=== PATIENT | male | born 1975 | race Two or more races ===

== ENCOUNTER 2022-04-29 13:33 | Inpatient (IN) | payer OTHER ==
[~2022-04-29] VITALS: Ht 170.2 cm; Wt 93.7 kg
[2022-04-29] MEDS ORDERED: ONDANSETRON HCL 4 MG/2 ML VIAL IV ONE ×2 (14:00→21:15)
[2022-04-29] MEDS ORDERED: SODIUM CHLORIDE 0.9% 1,000 ML IVB ONE (14:00)
[2022-04-29] MEDS ORDERED: MORPHINE SULFATE 4 MG/ML SYR/VIAL IV ONE ×2 (14:00→21:15)
[2022-04-29 16:32] LABS: Basophils # (auto) 0.1 10 ^3/uL (0-0.2); Eosinophils # (auto) 0.2 10 ^3/uL (0-0.8); Hematocrit 45.4 % (41.0-53.0); Hemoglobin 15.2 g/dL (13.5-17.5); Lymphocytes # (auto) 2.6 10 ^3/uL (0.4-5.4); Lymphocytes % (auto) 35.9 % (10.0-50.0); Mean Corpuscular Hgb Conc. 33.4 g/dL (32.0-36.0); Mean Corpuscular Volume 89.8 fL (80.0-100.0); Monocytes # (auto) 0.4 10 ^3/uL (0-1.3); Monocytes % (auto) 5.7 % (0.0-12.0); Neutrophils % (auto) 54.4 % (37.0-80.0); Nucleated Red Blood Cells % 0.1 %; Red Blood Cells 5.06 10^6/uL (4.5-5.90); Red Cell Distribution Width 12.9 % (11.8-14.3); White Blood Cell 7.3 10^3/uL (4.4-10.8)
[2022-04-29 16:54] LABS: Albumin 4.1 g/dL (3.4-5.0); Calcium 8.7 mg/dL (8.5-10.1); Potassium 3.9 mmol/L (3.5-5.1)
[2022-04-29 16:58] LABS: BUN/Creatinine Ratio 11.3; Bilirubin, Total 0.7 mg/dL (0.2-1.0); Total Protein 7.9 g/dL (6.4-8.2)
[2022-04-29 17:24] LABS: INR 1.01 (0.9-1.15); Partial Thromboplastin Time 31.3 sec (24.6-33.4)
[2022-04-29 21:43] LABS: Urine Bacteria NONE SEEN /hpf (None Seen); Urine Blood TRACE /uL (Negative); Urine Mucus FEW (None Seen); Urine Specific Gravity 1.013 (1.001-1.035); Urine WBC 1 /hpf (0 - 3)
[2022-04-29] MEDS ORDERED: MORPHINE SULFATE INJ 2 MG/ml SYRG IV PRN (21:45)
[2022-04-29] MEDS ORDERED: NITROGLYCERIN 0.4 MG SL TAB SL PRN (21:45)
[2022-04-29] MEDS ORDERED: PANTOPRAZOLE 40 MG/10 ML VIAL INJ IV ONE (21:45)
[2022-04-29] MEDS: D5W/SOD CHL 0.45% 1,000 ML IV SCH (21:57)
[2022-04-30 04:54] LABS: Basophils # (auto) 0 10 ^3/uL (0-0.2); Basophils % (auto) 0.7 % (0.0-2.0); Eosinophils # (auto) 0.1 10 ^3/uL (0-0.8); Eosinophils % (auto) 1.7 % (0.0-7.0); Hematocrit 38.5 % (41.0-53.0); Hemoglobin 13.4 g/dL (13.5-17.5); Lymphocytes # (auto) 2.3 10 ^3/uL (0.4-5.4); Lymphocytes % (auto) 38.3 % (10.0-50.0); Mean Corpuscular Hemoglobin 31.1 pg (28.0-32.0); Mean Corpuscular Hgb Conc. 34.7 g/dL (32.0-36.0); Mean Corpuscular Volume 89.8 fL (80.0-100.0); Monocytes # (auto) 0.5 10 ^3/uL (0-1.3); Monocytes % (auto) 8.5 % (0.0-12.0); Neutrophils % (auto) 50.8 % (37.0-80.0); Red Blood Cells 4.29 10^6/uL (4.5-5.90); Red Cell Distribution Width 12.9 % (11.8-14.3); White Blood Cell 5.9 10^3/uL (4.4-10.8)
[2022-04-30 05:16] LABS: Albumin 3.5 g/dL (3.4-5.0); Calcium 8.2 mg/dL (8.5-10.1); Potassium 4.3 mmol/L (3.5-5.1)
[2022-04-30 05:21] LABS: BUN/Creatinine Ratio 12.3; Bilirubin, Total 2.1 mg/dL (0.2-1.0); Total Protein 6.3 g/dL (6.4-8.2)
[2022-04-30] MEDS: ONDANSETRON HCL 4 MG/2 ML VIAL IV PRN ×2 (05:59→20:53)
[2022-04-30] MEDS: MORPHINE SULFATE 4 MG/ML SYR/VIAL IV PRN ×2 (05:59→20:52)
[2022-04-30 09:52] LABS: Amylase 111 U/L (25-115); Lipase 821 U/L (73-393)
[2022-04-30] MEDS: PANTOPRAZOLE 40 MG/10 ML VIAL INJ IV SCH (10:16)
[2022-04-30] MEDS ORDERED: EZ PAQUE SUSP 12OZ BTL ONE (10:16)
[2022-04-30] MEDS: ENOXAPARIN SOD 40 MG/0.4 ML SYRINGE SC SCH (10:16)
[2022-04-30] MEDS ORDERED: BARIUM SULFATE 98% 340 GM PWDR ONE (10:16)
[2022-04-30] MEDS ORDERED: GASTROGRAFIN 120 ML SOL ONE (10:17)
[2022-04-30] MEDS ORDERED: EZ-GAS II GRANULES (RADIOLOGY USE) PO ONE (10:18)
[2022-04-30 14:46] VITALS: BP 107/68
[2022-04-30] MEDS: D5W/SOD CHL 0.45% 1,000 ML IV SCH ×2 (17:42→23:01)
[2022-04-30 22:00] VITALS: BP 109/72
[2022-05-01 04:52] VITALS: BP 100/61
[2022-05-01] MEDS: D5W/SOD CHL 0.45% 1,000 ML IV SCH ×3 (05:48→21:21)
[2022-05-01 08:30] VITALS: BP 102/54
[2022-05-01] MEDS: PANTOPRAZOLE 40 MG/10 ML VIAL INJ IV SCH (10:35)
[2022-05-01] MEDS: ENOXAPARIN SOD 40 MG/0.4 ML SYRINGE SC SCH (10:35)
[2022-05-01 12:30] VITALS: BP 120/78
[2022-05-01 16:16] VITALS: BP 112/75
[2022-05-01] MEDS: HYDROcodone-ACET 10/325MG TAB PO PRN ×2 (16:50→21:21)
[2022-05-01] MEDS: DOCUSATE SOD 100 MG CAP PO SCH (21:21)
[2022-05-01 22:00] VITALS: BP 112/68
[2022-05-02] MEDS: D5W/SOD CHL 0.45% 1,000 ML IV SCH ×2 (03:05→09:45)
[2022-05-02 05:00] VITALS: BP 106/58
[2022-05-02 05:52] LABS: Albumin 3.4 g/dL (3.4-5.0); Calcium 8.7 mg/dL (8.5-10.1); Potassium 4.1 mmol/L (3.5-5.1)
[2022-05-02 05:57] LABS: BUN/Creatinine Ratio 5.6; Bilirubin, Total 1.6 mg/dL (0.2-1.0); Total Protein 6.4 g/dL (6.4-8.2)
[2022-05-02 09:00] VITALS: BP 109/70
[2022-05-02] MEDS: DOCUSATE SOD 100 MG CAP PO SCH ×2 (09:31→22:06)
[2022-05-02] MEDS: HYDROcodone-ACET 10/325MG TAB PO PRN ×3 (09:31→22:06)
[2022-05-02] MEDS: ENOXAPARIN SOD 40 MG/0.4 ML SYRINGE SC SCH (09:31)
[2022-05-02] MEDS: PANTOPRAZOLE 40 MG/10 ML VIAL INJ IV SCH (09:31)
[2022-05-02 13:00] VITALS: BP 104/61
[2022-05-02 13:26] LABS: Hepatitis A Ab IgM Negative; Hepatitis B Core IgM Negative; Hepatitis C Antibody Negative (Negative)
[2022-05-02] MEDS ORDERED: OMNIPAQUE ORAL SOLN 500ml 12mg/ml PO ONE (13:29)
[2022-05-02] MEDS ORDERED: IOHEXOL 300 MG/ML 100ML BOTTLE IJ ONE (14:59)
[2022-05-02 17:00] VITALS: BP 112/68
[2022-05-02 21:30] VITALS: BP 103/71
[2022-05-02 22:33] LABS: Urine Bacteria NONE SEEN /hpf (None Seen); Urine Blood Negative /uL (Negative); Urine Specific Gravity 1.012 (1.001-1.035); Urine WBC 1 /hpf (0 - 3)
[2022-05-03 03:44] LABS: Albumin 3.6 g/dL (3.4-5.0); Calcium 8.6 mg/dL (8.5-10.1); Potassium 4.5 mmol/L (3.5-5.1)
[2022-05-03 03:47] LABS: BUN/Creatinine Ratio 4.6; Bilirubin, Total 1.8 mg/dL (0.2-1.0); Total Protein 6.7 g/dL (6.4-8.2)
[2022-05-03 05:00] VITALS: BP 98/56
[2022-05-03 09:03] VITALS: BP 107/59
[2022-05-03] MEDS: ENOXAPARIN SOD 40 MG/0.4 ML SYRINGE SC SCH (09:55)
[2022-05-03] MEDS: DOCUSATE SOD 100 MG CAP PO SCH ×2 (09:55→21:45)
[2022-05-03] MEDS: PANTOPRAZOLE 40 MG/10 ML VIAL INJ IV SCH (09:57)
[2022-05-03 13:00] VITALS: BP 106/64
[2022-05-03] MEDS: HYDROcodone-ACET 10/325MG TAB PO PRN ×2 (15:18→19:44)
[2022-05-03 16:59] VITALS: BP 109/64
[2022-05-03 22:00] VITALS: BP 112/73
[2022-05-04] MEDS: ONDANSETRON HCL 4 MG/2 ML VIAL IV PRN (00:21)
[2022-05-04 05:00] VITALS: BP 105/71
[2022-05-04 06:57] LABS: Albumin 3.8 g/dL (3.4-5.0); Calcium 8.7 mg/dL (8.5-10.1); Potassium 4.1 mmol/L (3.5-5.1)
[2022-05-04 07:00] LABS: BUN/Creatinine Ratio 6.6; Bilirubin, Total 1.6 mg/dL (0.2-1.0); Total Protein 6.8 g/dL (6.4-8.2)
[2022-05-04 09:00] VITALS: BP 109/70
[2022-05-04] MEDS: PANTOPRAZOLE 40 MG/10 ML VIAL INJ IV SCH (10:00)
[2022-05-04] MEDS: DOCUSATE SOD 100 MG CAP PO SCH ×2 (11:58→22:45)
[2022-05-04] MEDS: ENOXAPARIN SOD 40 MG/0.4 ML SYRINGE SC SCH (11:59)
[2022-05-04 13:00] VITALS: BP 112/71
[2022-05-04 13:41] LABS: Cholesterol 176 mg/dL (< 200); HDL Cholesterol 65 mg/dL (40-59); LDL Cholesterol 104 mg/dL (< 100); Triglycerides 111 mg/dL (< 150)
[2022-05-04 17:00] VITALS: BP 112/68
[2022-05-04] MEDS: HYDROcodone-ACET 10/325MG TAB PO PRN (20:12)
[2022-05-05 05:12] VITALS: BP 96/59
[2022-05-05 06:00] LABS: Albumin 3.5 g/dL (3.4-5.0); BUN/Creatinine Ratio 18.8; Bilirubin, Total 0.7 mg/dL (0.2-1.0); Calcium 8.7 mg/dL (8.5-10.1); Total Protein 6.6 g/dL (6.4-8.2)
[2022-05-05 08:00] VITALS: BP 110/71
[2022-05-05] MEDS: DOCUSATE SOD 100 MG CAP PO SCH ×2 (08:49→21:14)
[2022-05-05] MEDS: ENOXAPARIN SOD 40 MG/0.4 ML SYRINGE SC SCH (08:49)
[2022-05-05] MEDS: PANTOPRAZOLE 40 MG/10 ML VIAL INJ IV SCH (08:49)
[2022-05-05 09:00] VITALS: BP 110/71
[2022-05-05 13:00] VITALS: BP 105/69
[2022-05-05 17:00] VITALS: BP 100/62
[2022-05-05] MEDS: ACETAMINOPHEN 325 MG TAB PO PRN (21:14)
[2022-05-05 22:32] VITALS: BP 104/68
[2022-05-06 05:32] VITALS: BP 90/52
[2022-05-06 06:07] LABS: Albumin 3.6 g/dL (3.4-5.0); Calcium 8.5 mg/dL (8.5-10.1); Potassium 4.3 mmol/L (3.5-5.1)
[2022-05-06 06:14] LABS: BUN/Creatinine Ratio 15.7; Bilirubin, Total 0.6 mg/dL (0.2-1.0); Total Protein 6.8 g/dL (6.4-8.2)
[2022-05-06 07:34] VITALS: BP 110/67
[2022-05-06] MEDS: DOCUSATE SOD 100 MG CAP PO SCH ×2 (11:15→21:47)
[2022-05-06] MEDS: PANTOPRAZOLE 40 MG/10 ML VIAL INJ IV SCH (11:15)
[2022-05-06] MEDS: ENOXAPARIN SOD 40 MG/0.4 ML SYRINGE SC SCH (11:15)
[2022-05-06] MEDS: HYDROcodone-ACET 10/325MG TAB PO PRN (11:32)
[2022-05-06 12:41] VITALS: BP 117/72
[2022-05-06 16:44] VITALS: BP 102/69
[2022-05-06 22:00] VITALS: BP 99/68
[2022-05-06] MEDS: ACETAMINOPHEN 325 MG TAB PO PRN (23:49)
[2022-05-07 05:00] VITALS: BP 107/72
[2022-05-07 07:32] LABS: Albumin 3.7 g/dL (3.4-5.0); Calcium 8.5 mg/dL (8.5-10.1); Potassium 4.1 mmol/L (3.5-5.1)
[2022-05-07 07:36] LABS: BUN/Creatinine Ratio 13.7; Bilirubin, Total 0.7 mg/dL (0.2-1.0); Total Protein 6.9 g/dL (6.4-8.2)
[2022-05-07 09:00] VITALS: BP 98/60
[2022-05-07] MEDS: PANTOPRAZOLE 40 MG/10 ML VIAL INJ IV SCH (10:00)
[2022-05-07] MEDS: DOCUSATE SOD 100 MG CAP PO SCH ×2 (10:00→22:04)
[2022-05-07] MEDS: ENOXAPARIN SOD 40 MG/0.4 ML SYRINGE SC SCH (10:00)
[2022-05-07 12:56] VITALS: BP 96/55
[2022-05-07] MEDS: HYDROcodone-ACET 10/325MG TAB PO PRN ×2 (13:55→22:08)
[2022-05-07 22:00] VITALS: BP 104/66
[2022-05-08 05:00] VITALS: BP 95/63
[2022-05-08 06:10] LABS: Potassium 4.3 mmol/L (3.5-5.1)
[2022-05-08 06:26] LABS: Albumin 3.5 g/dL (3.4-5.0); BUN/Creatinine Ratio 19.1; Bilirubin, Total 0.4 mg/dL (0.2-1.0); Calcium 8.5 mg/dL (8.5-10.1); Total Protein 6.4 g/dL (6.4-8.2)
[2022-05-08 09:00] VITALS: BP 103/64
[2022-05-08] MEDS: DOCUSATE SOD 100 MG CAP PO SCH (10:18)
[2022-05-08] MEDS: HYDROcodone-ACET 10/325MG TAB PO PRN (10:18)
[2022-05-08] MEDS: ENOXAPARIN SOD 40 MG/0.4 ML SYRINGE SC SCH (10:19)
[2022-05-08] MEDS: PANTOPRAZOLE 40 MG/10 ML VIAL INJ IV SCH (10:19)
[2022-05-08] MEDS ORDERED: PANT40TA2 PO (12:34)
[2022-05-08 13:00] VITALS: BP 98/63
[2022-05-08 15:58] VITALS: BP 98/63
[2022-05-08 17:00] VITALS: BP 101/65
== END 2022-05-08 17:35 | DRG 391 ==
LOC: EDBD 13:33 → EEVIPCON 13:33 → ER 13:33 → OVERFLOW 21:41 → CENTRAL 04-30 13:31
PROVIDERS: ADMIT Internal Medicine; ATTEND Internal Medicine
DX: K29.70 Gastritis, unspecified, without bleeding (principal); K85.90 Acute pancreatitis without necrosis or infection, unspecified; N13.8 Other obstructive and reflux uropathy; N32.0 Bladder-neck obstruction; N40.1 Benign prostatic hyperplasia with lower urinary tract symptoms; K59.00 Constipation, unspecified; K75.9 Inflammatory liver disease, unspecified; N28.1 Cyst of kidney, acquired; R33.8 Other retention of urine; F17.200 Nicotine dependence, unspecified, uncomplicated; Z20.822 Contact with and (suspected) exposure to COVID-19; Z90.49 Acquired absence of other specified parts of digestive tract; Z86.14 Personal history of Methicillin resistant Staphylococcus aureus infection; Z79.899 Other long term (current) drug therapy; Z80.0 Family history of malignant neoplasm of digestive organs
CPT/HCPCS: 36415; 70450; 74018; 74176; 74177; 74181; 74248; 76705; 80053; 80061; 80074; 81001; 82150; 83690; 84154; 85025; 85610; 85730; 86850; 86900; 86901; 87081; 87086; 96361; 96374; 96375; C9113; G0378; J2405

== ENCOUNTER 2022-05-10 01:02 | Inpatient (IN) | payer OTHER ==
[~2022-05-10] VITALS: Ht 172.7 cm; Wt 90.1 kg
[~2022-05-10 01:02] MED LIST: PANT40TA2 PO
[2022-05-10 02:50] LABS: Basophils # (auto) 0.1 10 ^3/uL (0-0.2); Eosinophils # (auto) 0.3 10 ^3/uL (0-0.8); Eosinophils % (auto) 3.2 % (0.0-7.0); Hemoglobin 15.2 g/dL (13.5-17.5); Lymphocytes # (auto) 2.6 10 ^3/uL (0.4-5.4); Lymphocytes % (auto) 30.2 % (10.0-50.0); Mean Corpuscular Hemoglobin 31.6 pg (28.0-32.0); Mean Corpuscular Hgb Conc. 35.4 g/dL (32.0-36.0); Mean Corpuscular Volume 89.2 fL (80.0-100.0); Monocytes # (auto) 0.5 10 ^3/uL (0-1.3); Monocytes % (auto) 6.2 % (0.0-12.0); Neutrophils # (auto) 5.1 10 ^3/uL (1.6-8.6); Neutrophils % (auto) 59.4 % (37.0-80.0); Red Blood Cells 4.82 10^6/uL (4.5-5.90); White Blood Cell 8.6 10^3/uL (4.4-10.8)
[2022-05-10 03:05] LABS: Calcium 8.7 mg/dL (8.5-10.1); Potassium 3.6 mmol/L (3.5-5.1)
[2022-05-10 03:09] LABS: BUN/Creatinine Ratio 19.1; Bilirubin, Total 0.4 mg/dL (0.2-1.0); Total Protein 7.9 g/dL (6.4-8.2)
[2022-05-10] MEDS ORDERED: LIDOCAINE VISCOUS 2% 15ML UD PO ONE (07:00)
[2022-05-10] MEDS ORDERED: ONDANSETRON HCL 4 MG/2 ML VIAL IV ONE (07:00)
[2022-05-10] MEDS ORDERED: KETOROLAC TROMETH 30 MG/ML 1ML VIAL IV ONE (07:00)
[2022-05-10] MEDS ORDERED: HYDROcodone-ACET 5/325MG TAB PO ONE (07:00)
[2022-05-10] MEDS ORDERED: FAMOTIDINE (10MG/ML) 2ML VL IV ONE (07:00)
[2022-05-10] MEDS ORDERED: ALUM & MAG HYDROX-SIMETH LIQ(MAALOX) 30 ML PO ONE (07:00)
[2022-05-10] MEDS ORDERED: IOHEXOL 300 MG/ML 100ML BOTTLE IJ ONE (07:04)
[2022-05-10] MEDS ORDERED: SODIUM CHLORIDE 0.9% 1,000 ML IV ONE (10:45)
[2022-05-10] MEDS ORDERED: MORPHINE SULFATE INJ 2 MG/ml SYRG IV ONE (10:45)
[2022-05-10] MEDS ORDERED: METOCLOPRAMIDE HCL 5MG/ml INJ 2ml VIAL IV ONE (10:45)
[2022-05-10] MEDS ORDERED: ONDANSETRON HCL 4 MG/2 ML VIAL IV PRN (17:00)
[2022-05-10 22:00] VITALS: BP 115/80
[2022-05-10] MEDS: PANTOPRAZOLE 40 MG/10 ML VIAL INJ IV SCH (22:00)
[2022-05-10] MEDS: SUCRALFATE 1 GM/10 ML ORAL SUSP PO SCH (22:00)
[2022-05-11 03:28] LABS: Basophils # (auto) 0.1 10 ^3/uL (0-0.2); Basophils % (auto) 1.2 % (0.0-2.0); Eosinophils # (auto) 0.3 10 ^3/uL (0-0.8); Eosinophils % (auto) 4.3 % (0.0-7.0); Hematocrit 40.7 % (41.0-53.0); Lymphocytes # (auto) 2.2 10 ^3/uL (0.4-5.4); Lymphocytes % (auto) 34.9 % (10.0-50.0); Mean Corpuscular Hemoglobin 30.9 pg (28.0-32.0); Mean Corpuscular Hgb Conc. 34.5 g/dL (32.0-36.0); Mean Corpuscular Volume 89.5 fL (80.0-100.0); Monocytes # (auto) 0.4 10 ^3/uL (0-1.3); Neutrophils # (auto) 3.2 10 ^3/uL (1.6-8.6); Neutrophils % (auto) 52.6 % (37.0-80.0); Nucleated Red Blood Cells % 0.1 %; Red Blood Cells 4.55 10^6/uL (4.5-5.90); Red Cell Distribution Width 12.4 % (11.8-14.3); White Blood Cell 6.2 10^3/uL (4.4-10.8)
[2022-05-11 03:41] LABS: Albumin 3.8 g/dL (3.4-5.0); Calcium 8.7 mg/dL (8.5-10.1); Potassium 4.4 mmol/L (3.5-5.1)
[2022-05-11 03:45] LABS: BUN/Creatinine Ratio 17.7; Bilirubin, Total 0.7 mg/dL (0.2-1.0); Total Protein 6.8 g/dL (6.4-8.2)
[2022-05-11 05:00] VITALS: BP 98/63
[2022-05-11] MEDS: SUCRALFATE 1 GM/10 ML ORAL SUSP PO SCH ×3 (06:00→21:36)
[2022-05-11 09:19] VITALS: BP 100/64
[2022-05-11] MEDS: PANTOPRAZOLE 40 MG/10 ML VIAL INJ IV SCH ×2 (11:28→21:35)
[2022-05-11] MEDS: MORPHINE SULFATE 4 MG/ML SYR/VIAL IV PRN (11:29)
[2022-05-11] MEDS: ENOXAPARIN SOD 40 MG/0.4 ML SYRINGE SC SCH (11:29)
[2022-05-11] MEDS: D5W/SOD CHL 0.45%/KCL 20MEQ 1,000 ML IV SCH ×2 (12:30→19:59)
[2022-05-11 13:05] VITALS: BP 105/69
[2022-05-11 17:00] VITALS: BP 110/71
[2022-05-11 21:57] VITALS: BP 116/75
[2022-05-12] MEDS: D5W/SOD CHL 0.45%/KCL 20MEQ 1,000 ML IV SCH ×4 (01:23→21:05)
[2022-05-12 05:00] VITALS: BP 100/65
[2022-05-12] MEDS: SUCRALFATE 1 GM/10 ML ORAL SUSP PO SCH ×3 (05:19→21:20)
[2022-05-12 08:58] VITALS: BP 110/71
[2022-05-12 09:11] LABS: Albumin 3.6 g/dL (3.4-5.0); Calcium 8.2 mg/dL (8.5-10.1); Potassium 4.3 mmol/L (3.5-5.1)
[2022-05-12 09:15] LABS: BUN/Creatinine Ratio 12.1; Bilirubin, Total 0.6 mg/dL (0.2-1.0); Total Protein 6.6 g/dL (6.4-8.2)
[2022-05-12] MEDS: ENOXAPARIN SOD 40 MG/0.4 ML SYRINGE SC SCH (11:06)
[2022-05-12] MEDS: PANTOPRAZOLE 40 MG/10 ML VIAL INJ IV SCH ×2 (11:06→21:20)
[2022-05-12] MEDS: MORPHINE SULFATE 4 MG/ML SYR/VIAL IV PRN (11:12)
[2022-05-12 13:00] VITALS: BP 107/78
[2022-05-12] MEDS: PENICILLIN V POTASSIUM 250 MG TAB PO SCH ×2 (18:20→21:21)
[2022-05-12] MEDS: METOCLOPRAMIDE HCL 10 MG TAB PO SCH (21:21)
[2022-05-12 22:00] VITALS: BP 108/74
[2022-05-13] MEDS: MORPHINE SULFATE 4 MG/ML SYR/VIAL IV PRN (00:37)
[2022-05-13] MEDS: D5W/SOD CHL 0.45%/KCL 20MEQ 1,000 ML IV SCH ×4 (03:45→20:39)
[2022-05-13 05:00] VITALS: BP 105/68
[2022-05-13] MEDS: METOCLOPRAMIDE HCL 10 MG TAB PO SCH ×3 (05:22→21:35)
[2022-05-13] MEDS: SUCRALFATE 1 GM/10 ML ORAL SUSP PO SCH ×3 (05:22→21:34)
[2022-05-13] MEDS: PENICILLIN V POTASSIUM 250 MG TAB PO SCH ×4 (05:22→21:34)
[2022-05-13 07:07] LABS: Albumin 3.5 g/dL (3.4-5.0); Calcium 8.3 mg/dL (8.5-10.1); Potassium 4.2 mmol/L (3.5-5.1)
[2022-05-13 07:10] LABS: BUN/Creatinine Ratio 10.5; Bilirubin, Total 0.4 mg/dL (0.2-1.0); Total Protein 6.2 g/dL (6.4-8.2)
[2022-05-13 09:00] VITALS: BP 112/75
[2022-05-13] MEDS: ENOXAPARIN SOD 40 MG/0.4 ML SYRINGE SC SCH (09:46)
[2022-05-13] MEDS: PANTOPRAZOLE 40 MG/10 ML VIAL INJ IV SCH ×2 (09:46→21:34)
[2022-05-13 13:00] VITALS: BP 120/76
[2022-05-13 17:00] VITALS: BP 114/72
[2022-05-13 22:00] VITALS: BP 109/72
[2022-05-14 05:00] VITALS: BP 100/62
[2022-05-14] MEDS: PENICILLIN V POTASSIUM 250 MG TAB PO SCH (05:09)
[2022-05-14] MEDS: METOCLOPRAMIDE HCL 10 MG TAB PO SCH ×2 (05:09→13:53)
[2022-05-14] MEDS: SUCRALFATE 1 GM/10 ML ORAL SUSP PO SCH ×2 (05:09→13:53)
[2022-05-14] MEDS: D5W/SOD CHL 0.45%/KCL 20MEQ 1,000 ML IV SCH (05:10)
[2022-05-14 07:34] LABS: Albumin 3.4 g/dL (3.4-5.0); Calcium 8.2 mg/dL (8.5-10.1)
[2022-05-14 07:37] LABS: BUN/Creatinine Ratio 7.8; Bilirubin, Total 0.7 mg/dL (0.2-1.0); Total Protein 6.6 g/dL (6.4-8.2)
[2022-05-14] MEDS ORDERED: EPINEPHrine HCL 1 MG/10 ML SYRG ONE (08:04)
[2022-05-14] MEDS ORDERED: FLUMAZENIL 0.1 MG/ML INJ 10ML MDV IV ONE (08:04)
[2022-05-14] MEDS ORDERED: SODIUM CHLORIDE LOCK 10 ML ONE (08:04)
[2022-05-14] MEDS ORDERED: diphenhdrAMINE HCL 50 MG/1 ML VL ONE (08:04)
[2022-05-14] MEDS ORDERED: NALOXONE HCL 0.4 MG/ML VIAL ONE (08:04)
[2022-05-14] MEDS ORDERED: LIDOCAINE VISCOUS 2% 15ML UD ONE (08:04)
[2022-05-14] MEDS ORDERED: fentaNYL CITRATE 100 MCG/2 ML VL ONE (08:04)
[2022-05-14] MEDS: MIDAZOLAM HCL 5 MG/ML-1ML VIAL ONE ×2 (08:29→08:33)
[2022-05-14] MEDS: PANTOPRAZOLE 40 MG/10 ML VIAL INJ IV SCH (10:21)
[2022-05-14] MEDS: ENOXAPARIN SOD 40 MG/0.4 ML SYRINGE SC SCH (10:21)
[2022-05-14] MEDS ORDERED: diphenhdrAMINE HCL 50 MG/1 ML VL IV ONE (11:15)
[2022-05-14 13:00] VITALS: BP 119/75
== END 2022-05-14 18:10 | DRG 392 ==
LOC: EEVIPCON 01:02 → EDUNIT# 01:02 → ER 01:02 → EDBD 01:02 → OVERFLOW 16:52 → WEST WING 18:24
PROVIDERS: ADMIT Internal Medicine; ATTEND Internal Medicine
PROC: 0DB68ZX Excision of Stomach, Via Natural or Artificial Opening Endoscopic, Diagnostic (ICD-10-PCS; principal; 2022-05-14 08:26)
DX: K29.70 Gastritis, unspecified, without bleeding (principal); N39.0 Urinary tract infection, site not specified; E86.0 Dehydration; K38.1 Appendicular concretions; K21.9 Gastro-esophageal reflux disease without esophagitis; Z20.822 Contact with and (suspected) exposure to COVID-19; R74.8 Abnormal levels of other serum enzymes; Z90.49 Acquired absence of other specified parts of digestive tract; Z80.0 Family history of malignant neoplasm of digestive organs; Z86.14 Personal history of Methicillin resistant Staphylococcus aureus infection
CPT/HCPCS: 36415; 74177; 80053; 82150; 83690; 85025; 86850; 86900; 86901; 87040; 87081; 87086; 87088; 96374; 96375; C9113; G0378; J1885; J2250; J2405; J3490

== ENCOUNTER 2022-08-04 14:59 | Inpatient (IN) | payer OTHER ==
[~2022-08-04] VITALS: Ht 170.2 cm; Wt 91.0 kg
[2022-08-04] MEDS ORDERED: PANTOPRAZOLE 40 MG/10 ML VIAL INJ IV ONE ×2 (15:45→17:30)
[2022-08-04] MEDS ORDERED: ONDANSETRON HCL 4 MG/2 ML VIAL IV ONE (15:45)
[2022-08-04] MEDS ORDERED: SODIUM CHLORIDE 0.9% 1,000 ML IVB ONE (15:45)
[2022-08-04] MEDS ORDERED: MORPHINE SULFATE 4 MG/ML SYR/VIAL IV ONE (15:45)
[2022-08-04 16:23] LABS: Basophils # (auto) 0.1 10 ^3/uL (0-0.2); Basophils % (auto) 0.9 % (0.0-2.0); Eosinophils # (auto) 0.2 10 ^3/uL (0-0.8); Hemoglobin 16.2 g/dL (13.5-17.5); Lymphocytes # (auto) 2.5 10 ^3/uL (0.4-5.4); Lymphocytes % (auto) 32.4 % (10.0-50.0); Mean Corpuscular Hemoglobin 30.6 pg (28.0-32.0); Mean Corpuscular Hgb Conc. 33.8 g/dL (32.0-36.0); Mean Corpuscular Volume 90.3 fL (80.0-100.0); Monocytes # (auto) 0.5 10 ^3/uL (0-1.3); Monocytes % (auto) 5.9 % (0.0-12.0); Neutrophils # (auto) 4.6 10 ^3/uL (1.6-8.6); Neutrophils % (auto) 58.8 % (37.0-80.0); Nucleated Red Blood Cells % 0.3 %; Red Blood Cells 5.32 10^6/uL (4.5-5.90); Red Cell Distribution Width 12.4 % (11.8-14.3); White Blood Cell 7.8 10^3/uL (4.4-10.8)
[2022-08-04 16:45] LABS: Calcium 9.1 mg/dL (8.5-10.1)
[2022-08-04 16:48] LABS: Albumin 4.1 g/dL (3.4-5.0); BUN/Creatinine Ratio 18.8
[2022-08-04 16:51] LABS: Bilirubin, Total 0.6 mg/dL (0.2-1.0); Total Protein 7.8 g/dL (6.4-8.2)
[2022-08-04] MEDS ORDERED: D5W/SOD CHL 0.45% 1,000 ML IV ONE (17:30)
[2022-08-04] MEDS ORDERED: ONDANSETRON HCL 4 MG/2 ML VIAL IV PRN (17:30)
[2022-08-04] MEDS ORDERED: NITROGLYCERIN 0.4 MG SL TAB SL PRN (17:30)
[2022-08-04] MEDS: PANTOPRAZOLE 40 MG/10 ML VIAL INJ IV SCH (22:37)
[2022-08-05] MEDS: MORPHINE SULFATE INJ 2 MG/ml SYRG IV PRN ×2 (01:05→06:09)
[2022-08-05 06:43] LABS: Basophils # (auto) 0 10 ^3/uL (0-0.2); Basophils % (auto) 0.4 % (0.0-2.0); Eosinophils # (auto) 0.1 10 ^3/uL (0-0.8); Eosinophils % (auto) 1.4 % (0.0-7.0); Hematocrit 43.9 % (41.0-53.0); Hemoglobin 15.3 g/dL (13.5-17.5); Lymphocytes # (auto) 1.8 10 ^3/uL (0.4-5.4); Lymphocytes % (auto) 27.9 % (10.0-50.0); Mean Corpuscular Hemoglobin 31.3 pg (28.0-32.0); Mean Corpuscular Hgb Conc. 34.8 g/dL (32.0-36.0); Monocytes # (auto) 0.6 10 ^3/uL (0-1.3); Monocytes % (auto) 8.7 % (0.0-12.0); Neutrophils % (auto) 61.6 % (37.0-80.0); Nucleated Red Blood Cells % 0.1 %; Red Blood Cells 4.88 10^6/uL (4.5-5.90); Red Cell Distribution Width 12.6 % (11.8-14.3); White Blood Cell 6.6 10^3/uL (4.4-10.8)
[2022-08-05 07:03] LABS: Potassium 3.9 mmol/L (3.5-5.1)
[2022-08-05 07:05] LABS: BUN/Creatinine Ratio 23.5
[2022-08-05 07:09] LABS: Bilirubin, Total 2.2 mg/dL (0.2-1.0); Total Protein 7.2 g/dL (6.4-8.2)
[2022-08-05] MEDS: PANTOPRAZOLE 40 MG/10 ML VIAL INJ IV SCH ×2 (10:37→22:30)
[2022-08-05] MEDS: HYDROmorphone HCL 2 MG/ML VL/or syr IV PRN ×2 (13:27→19:54)
[2022-08-05 17:00] VITALS: BP 114/78
[2022-08-05 22:00] VITALS: BP 138/87
[2022-08-05] MEDS: LACTULOSE 20Gm/30ML SOLN PO SCH (22:31)
[2022-08-06] MEDS ORDERED: LORazepam 2MG/ML-1ML VIAL IV ONE (03:15)
[2022-08-06 05:56] LABS: Basophils # (auto) 0 10 ^3/uL (0-0.2); Basophils % (auto) 0.7 % (0.0-2.0); Eosinophils # (auto) 0 10 ^3/uL (0-0.8); Eosinophils % (auto) 0.6 % (0.0-7.0); Hematocrit 41.4 % (41.0-53.0); Hemoglobin 14.5 g/dL (13.5-17.5); Lymphocytes # (auto) 0.7 10 ^3/uL (0.4-5.4); Lymphocytes % (auto) 12.5 % (10.0-50.0); Mean Corpuscular Hemoglobin 31.4 pg (28.0-32.0); Mean Corpuscular Volume 89.6 fL (80.0-100.0); Monocytes # (auto) 0.3 10 ^3/uL (0-1.3); Monocytes % (auto) 5.2 % (0.0-12.0); Neutrophils # (auto) 4.6 10 ^3/uL (1.6-8.6); Red Blood Cells 4.62 10^6/uL (4.5-5.90); Red Cell Distribution Width 12.6 % (11.8-14.3); White Blood Cell 5.7 10^3/uL (4.4-10.8)
[2022-08-06 06:16] LABS: Calcium 8.4 mg/dL (8.5-10.1); Potassium 3.7 mmol/L (3.5-5.1)
[2022-08-06 06:20] LABS: BUN/Creatinine Ratio 13.5; Bilirubin, Total 2.3 mg/dL (0.2-1.0)
[2022-08-06 08:00] VITALS: BP 130/70
[2022-08-06] MEDS: PANTOPRAZOLE 40 MG/10 ML VIAL INJ IV SCH ×2 (11:53→22:05)
[2022-08-06] MEDS: LACTULOSE 20Gm/30ML SOLN PO SCH ×2 (11:53→22:06)
[2022-08-06] MEDS ORDERED: GOLYTELY 4L KIT PO ONE (12:15)
[2022-08-06 13:00] VITALS: BP 118/82
[2022-08-06] MEDS ORDERED: HYDROcodone-ACET 10/325MG TAB PO PRN (13:30)
[2022-08-06 17:00] VITALS: BP 127/84
[2022-08-06 20:00] VITALS: BP 130/70
[2022-08-06 22:00] VITALS: BP 103/68
[2022-08-07 05:00] VITALS: BP 100/60
[2022-08-07] MEDS ORDERED: GOLYTELY 4L KIT PO ONE (06:00)
[2022-08-07 06:40] LABS: Basophils # (auto) 0.1 10 ^3/uL (0-0.2); Basophils % (auto) 1.1 % (0.0-2.0); Eosinophils # (auto) 0.3 10 ^3/uL (0-0.8); Eosinophils % (auto) 6.2 % (0.0-7.0); Hematocrit 41.6 % (41.0-53.0); Hemoglobin 14.5 g/dL (13.5-17.5); Lymphocytes # (auto) 1.8 10 ^3/uL (0.4-5.4); Lymphocytes % (auto) 32.1 % (10.0-50.0); Mean Corpuscular Hemoglobin 31.1 pg (28.0-32.0); Mean Corpuscular Hgb Conc. 34.9 g/dL (32.0-36.0); Mean Corpuscular Volume 89.2 fL (80.0-100.0); Monocytes # (auto) 0.4 10 ^3/uL (0-1.3); Monocytes % (auto) 6.6 % (0.0-12.0); Nucleated Red Blood Cells % 0.1 %; Red Blood Cells 4.66 10^6/uL (4.5-5.90); Red Cell Distribution Width 12.6 % (11.8-14.3); White Blood Cell 5.6 10^3/uL (4.4-10.8)
[2022-08-07 07:03] LABS: Albumin 3.7 g/dL (3.4-5.0); Bilirubin, Total 1.1 mg/dL (0.2-1.0); Calcium 8.4 mg/dL (8.5-10.1); Total Protein 6.8 g/dL (6.4-8.2)
[2022-08-07 08:00] VITALS: BP 115/76
[2022-08-07 08:10] LABS: Potassium 3.6 mmol/L (3.5-5.1)
[2022-08-07 09:00] VITALS: BP 115/76
[2022-08-07] MEDS: POLYETHYLENE GLYCOL 17 GM PWDR PO SCH (10:00)
[2022-08-07] MEDS: LACTULOSE 20Gm/30ML SOLN PO SCH ×2 (10:00→21:11)
[2022-08-07] MEDS: PANTOPRAZOLE 40 MG/10 ML VIAL INJ IV SCH ×2 (10:00→21:10)
[2022-08-07 13:00] VITALS: BP 110/70
[2022-08-07] MEDS ORDERED: LIDOCAINE 2% (LOCAL ANESTH.) PF 5ml SDV ONE (13:40)
[2022-08-07] MEDS ORDERED: PROPOFOL 10 MG/ML 20 ML IV ONE (14:22)
[2022-08-07 20:00] VITALS: BP 115/76
[2022-08-07 22:00] VITALS: BP 124/85
[2022-08-08 05:00] VITALS: BP 97/67
[2022-08-08 07:45] LABS: Potassium 3.9 mmol/L (3.5-5.1)
[2022-08-08 07:55] LABS: Albumin 3.7 g/dL (3.4-5.0); BUN/Creatinine Ratio 12.4; Bilirubin, Total 0.6 mg/dL (0.2-1.0); Calcium 8.7 mg/dL (8.5-10.1); Total Protein 6.6 g/dL (6.4-8.2)
[2022-08-08 08:00] VITALS: BP 125/83
[2022-08-08 09:00] VITALS: BP 125/83
[2022-08-08] MEDS: POLYETHYLENE GLYCOL 17 GM PWDR PO SCH (10:00)
[2022-08-08] MEDS: LACTULOSE 20Gm/30ML SOLN PO SCH (10:00)
[2022-08-08] MEDS: PANTOPRAZOLE 40 MG/10 ML VIAL INJ IV SCH (10:00)
[2022-08-08 13:00] VITALS: BP 113/72
[2022-08-08 13:54] LABS: Hepatitis A Ab IgM Negative
[2022-08-08 13:55] LABS: Hepatitis B Core IgM Negative
[2022-08-08 13:56] LABS: Hepatitis C Antibody Negative (Negative)
[2022-08-08 13:56] LABS: Hepatitis C Antibody Negative (Negative)
[2022-08-08 17:00] VITALS: BP 113/72
[2022-08-08] MEDS ORDERED: TAMSULOSIN HYDROCHLORIDE 0.4 MG CAP PO SCH (18:00)
[2022-08-08] MEDS ORDERED: TAM04C PO (19:21)
== END 2022-08-08 21:50 | DRG 379 ==
LOC: ER 14:59 → EEVIPCON 14:59 → OVERFLOW 17:21 → WEST WING 08-05 14:50
PROVIDERS: ADMIT Specialist; ATTEND Internal Medicine
PROC: 0DBH8ZZ Excision of Cecum, Via Natural or Artificial Opening Endoscopic (ICD-10-PCS; 2022-08-07)
PROC: 0DBL8ZZ Excision of Transverse Colon, Via Natural or Artificial Opening Endoscopic (ICD-10-PCS; 2022-08-07)
PROC: 0DBN8ZZ Excision of Sigmoid Colon, Via Natural or Artificial Opening Endoscopic (ICD-10-PCS; 2022-08-07)
PROC: 0DBP8ZZ Excision of Rectum, Via Natural or Artificial Opening Endoscopic (ICD-10-PCS; 2022-08-07)
PROC: 0DBB8ZX Excision of Ileum, Via Natural or Artificial Opening Endoscopic, Diagnostic (ICD-10-PCS; principal; 2022-08-07 13:56)
DX: K57.91 Diverticulosis of intestine, part unspecified, without perforation or abscess with bleeding (principal); K59.00 Constipation, unspecified; Z20.822 Contact with and (suspected) exposure to COVID-19; K63.5 Polyp of colon; K75.9 Inflammatory liver disease, unspecified; K21.9 Gastro-esophageal reflux disease without esophagitis; N40.0 Benign prostatic hyperplasia without lower urinary tract symptoms; Z80.9 Family history of malignant neoplasm, unspecified; Z87.19 Personal history of other diseases of the digestive system; Z90.49 Acquired absence of other specified parts of digestive tract
CPT/HCPCS: 36415; 74176; 74181; 76700; 80053; 80074; 82962; 83690; 85025; 86803; 87340; 87426; 96361; 96374; 96375; 96376; C9113; G0378; J2001; J2405; J2704

== ENCOUNTER 2022-11-03 18:04 | Emergency (ER) | payer OTHER ==
[~2022-11-03] VITALS: Ht 170.2 cm; Wt 89.6 kg
[~2022-11-03 18:04] MED LIST changes: +TAM04C PO
[2022-11-03 18:36] LABS: Urine WBC None Seen /hpf (0 - 3)
[2022-11-03 18:48] LABS: Urine Bacteria NONE SEEN /hpf (None Seen); Urine Blood Negative /uL (Negative); Urine Specific Gravity 1.003 (1.001-1.035)
[2022-11-03 19:11] LABS: Basophils # (auto) 0.1 10 ^3/uL (0-0.2); Basophils % (auto) 0.8 % (0.0-2.0); Eosinophils # (auto) 0.2 10 ^3/uL (0-0.8); Eosinophils % (auto) 2.8 % (0.0-7.0); Hematocrit 43.6 % (41.0-53.0); Hemoglobin 15.1 g/dL (13.5-17.5); Lymphocytes # (auto) 2.8 10 ^3/uL (0.4-5.4); Lymphocytes % (auto) 32.7 % (10.0-50.0); Mean Corpuscular Hemoglobin 30.4 pg (28.0-32.0); Mean Corpuscular Hgb Conc. 34.6 g/dL (32.0-36.0); Monocytes # (auto) 0.6 10 ^3/uL (0-1.3); Monocytes % (auto) 6.6 % (0.0-12.0); Neutrophils # (auto) 4.9 10 ^3/uL (1.6-8.6); Neutrophils % (auto) 57.1 % (37.0-80.0); Nucleated Red Blood Cells % 0.4 %; Red Blood Cells 4.95 10^6/uL (4.5-5.90); White Blood Cell 8.6 10^3/uL (4.4-10.8)
[2022-11-03 19:36] LABS: Albumin 4.2 g/dL (3.4-5.0); Calcium 8.9 mg/dL (8.5-10.1); Potassium 3.7 mmol/L (3.5-5.1)
[2022-11-03 19:45] LABS: BUN/Creatinine Ratio 11.2 (10.0-20.0); Bilirubin, Total 0.6 mg/dL (0.2-1.0); Total Protein 7.9 g/dL (6.4-8.2)
[2022-11-03] MEDS ORDERED: HYDROcodone-ACET 5/325MG TAB PO ONE (20:15)
[2022-11-03] MEDS ORDERED: ONDANSETRON ODT 4 MG TAB PO ONE (20:15)
[2022-11-04 00:28] VITALS: BP 119/71
== END 2022-11-04 00:34 | disposition home or self-care (01) ==
LOC: ER 18:04 → EEVIPCON 18:04 → ER 11-04 00:34
DX: R10.13 Epigastric pain (principal); E87.1 Hypo-osmolality and hyponatremia; K21.9 Gastro-esophageal reflux disease without esophagitis; Z87.19 Personal history of other diseases of the digestive system; Z90.49 Acquired absence of other specified parts of digestive tract; Z79.899 Other long term (current) drug therapy
CPT/HCPCS: 36415; 74176; 80053; 81001; 83690; 85025; 99284; Q0162